=== PATIENT | female | born 1930 | race Caucasian/White ===

== ENCOUNTER 2018-10-18 04:06 | Emergency (ER) | payer MEDICARE ==
[2018-10-18 04:27] LABS: Clarity Hazy (Clear)
[2018-10-18 04:28] LABS: Bilirubin Negative (Negative); Blood, Urine Trace (Negative); Glucose, Urine (Dipstick) Negative (Negative); Leukocyte Trace (Negative); Nitrite Negative (Negative); Protein, Urine (Dipstick) 30 mg/dL (Neg-Trace); Specific Gravity, Urine 1.015 (1.005-1.030); Urobilinogen 0.2 mg/dL (0.2-1.0)
[2018-10-18 04:38] LABS: Bacteria/HPF Rare-Few HPF (None Seen); Crystals/HPF 1+ AMORPH URATES HPF (Negative); RBC/HPF 0-3 HPF (0-3); Squamous Epithelial 0-3 HPF (0-3); WBC/HPF 0-3 HPF (0-3)
[2018-10-18 04:39] LABS: Other Microscopic Description FEW CLUE CELLS
[2018-10-18 04:52] LABS: #Lymphocytes 1.2 thou/uL (1.20-3.40); #Monocytes 0.5 thou/uL (0.11-0.59); #Neutrophils 7.4 thou/uL (1.40-6.50); %Basophils 0.5 % (0.0-1.0); %Eosinophils 0.1 % (0.0-10.0); %Lymphocytes 13.3 % (21.0-51.0); %Monocytes 5.1 % (0.0-10.0); %Neutrophils 81.1 % (42.0-75.0); Hemoglobin 13.8 g/dL (12.0-16.0); Mean Corpuscular HGB CONC 31.9 g/dL (32.0-36.0); Mean Corpuscular Hemoglobin 27.9 pg (27.0-31.0); Mean Corpuscular Volume 87.2 fL (78.0-98.0); Platelet Count 369 thou/uL (130-400); RBC Distribution Width 13.1 % (11.5-14.5); Red Blood Cell (RBC) Count 4.96 mill/uL (4.20-5.40); White Blood Cell (WBC) Count 9.1 thou/uL (4.8-10.8)
[2018-10-18 05:03] LABS: ALT (SGPT) 10 U/L (8-55); AST (SGOT) 10 U/L (5-34); Albumin 4.5 g/dL (3.4-4.8); Alkaline Phosphatase 74 U/L (40-150); Anion Gap 18 mmol/L (10-20); BUN (Urea Nitrogen) 14 mg/dL (9.8-20.1); Bilirubin, Total 0.5 mg/dL (0.2-1.2); Calc. Creatinine Clearance 0 mL/min (70-130); Calcium 10.8 mg/dL (7.8-10.44); Carbon Dioxide 28 mmol/L (23-31); Chloride 86 mmol/L (98-107); Estimated GFR-MDRD 63; Globulin 2.8 g/dL (2.4-3.5); Glucose 197 mg/dL (83-110); Lipase 6 U/L (8-78); Protein, Total 7.3 g/dL (6.0-8.3); Sodium 128 mmol/L (136-145)
[2018-10-18] MEDS ORDERED: Midazolam HCl 2 mg/2 ml Vial ONE (06:17)
[2018-10-18] MEDS ORDERED: Ondansetron PF 4 MG/2 ML Vial ONE (06:31)
[2018-10-18] MEDS ORDERED: Lidocaine 2% PF 5 ML VIAL ONE (06:32)
--- NOTE | 2018-10-18 08:14 | CT ---
PRELIMINARY REPORT/[facility]/EMERGENCY AFTER HOURS PROCEDURE: EXAM: CT Abdomen and Pelvis With Contrast EXAM DATE/TIME: 10/18/2018 5:13 AM CLINICAL HISTORY: 87 years old, female; Abdominal pain; Generalized; Patient HX: Abd pain, R/O sbo, n/v TECHNIQUE: Imaging protocol: Axial computed tomography images of the abdomen and pelvis with intravenous contras t. Coronal and sagittal reformatted images were created and reviewed. Radiation optimization: All CT scans at this facility use at least one of these dose optimization hitesh hniques: automated exposure control; mA and/or kV adjustment per patient size (includes targeted exam s where dose is matched to clinical indication); or iterative reconstruction. Contrast material: ISOVUE 370; Contrast volume: 100 ml; Contrast route: LT AC; COMPARISON: No relevant prior studies available. FINDINGS: Tubes, catheters and devices: Right buttock generator for intrathecal device. Lungs: No consolidations in the lung bases. Mediastinum: Small hiatal hernia. Liver: No liver masses. Gallbladder and bile ducts: The gallbladder has been removed. The common bile duct is dilated up to 1 .4 cm. Pneumobilia. Pancreas: Marked atrophy of the pancreas. The tail may be absent. The pancreatic duct is dilated to 8 mm and contains intraductal stones. Spleen: No splenic masses. Adrenals: No adrenal nodules. Kidneys and ureters: No enhancing mass or hydronephrosis. Stomach and bowel: Dilated loops of small bowel up to 3 cm with air fluid levels. Transition point is likely in the right lower quadrant of the abdomen. Colonic diverticulosis without evidence of acute diverticulitis. Appendix: The appendix is not visualized. Intraperitoneal space: Small volume ascites in the abdomen and pelvis. Vasculature: Severe atherosclerosis of the aorta without aneurysm. Lymph nodes: No lymphadenopathy. Bladder: Normal. Reproductive: The uterus is not visualized. No adnexal masses. Bones/joints: No suspicious bone lesions. Compression fractures L1 and L3-L4. Grade 2 anterolisthesis of L4 to respect L5. Multilevel degenerative changes. Soft tissues: Diastases rectus. IMPRESSION: 1. Small bowel obstruction with transition point likely in the right lower quadrant due to adhesions. 2. Small volume ascites 3. The gallbladder has been removed. Pneumobilia and dilated common bile duct and pancreatic duct. Recommend comparison to any prior CTs not available at this time. 4. Colonic diverticulosis without evidence of acute diverticulitis. Thank you for allowing us to participate in the care of your patient. Dictated and Authenticated by: Jennie Alvarez MD 10/18/2018 6:08 AM Central Time ([place] & [place]) FINAL REPORT CT ABDOMEN AND PELVIS WITH CONTRAST: DATE: 10/18/2018. FINDINGS: Spiral CT of the abdomen and pelvis was performed with IV contrast. There are no prior studies avail able for comparison. I do see a prior cholangiogram indicating there has been a prior cholecystectom y. The major finding on this study is evidence of a small bowel obstruction. Small bowel becomes dilate d in the mid jejunal region reaching 3 cm in diameter with multiple fluid-filled loops of bowel. It transitions to a more normal size in the ileum. There is abundant fecal material in the colon but th e colon is not really dilated. Free fluid is present throughout the abdomen and pelvis. The lung bases are clear, except for chronic fibrotic changes. The liver is significant in that ther e is air in the biliary tract in the intrahepatic ducts. I have a suspicion that this may be chronic and a result of the patient's prior biliary tract surgery. Older studies would be needed to be cert ain, but I do see mild dilation and air in the common bile duct suggesting such. The spleen is somew hat small in size. The pancreas is not seen well, but no gross masses were indicated. The adrenal g lands and kidneys showed no acute findings. The aorta is densely calcified, but there is no aneurysm . The hiatal hernia was noted. CT of the pelvis was remarkable for free fluid. No other abnormalities aside from that described abo ve could be seen. There is extensive severe degenerative change in the lumbar spine with laminectomies around the lumbo sacral junction. 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 The bones are somewhat osteopenic and the superior end plates of L1 and L3 are beginning to compress. IMPRESSION: 1. Findings consistent with a mid small bowel obstruction beginning in the mid jejunal level through , but short of, the terminal ileum. 2. Free fluid in moderate amounts scattered throughout the abdomen and pelvis. 3. Air in the intrahepatic bile ducts. Thought to be more likely due to prior biliary tract surgery than current biliary tract infection. Correlate with known history and other exams if they exist el sewhere. 4. Small hiatal hernia. 5. 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 See details above. POS: HOME
[2018-10-18] MEDS ORDERED: Iopamidol 370 76% 125 ML VIAL FS ONE (09:00)
--- NOTE | 2018-10-18 19:22 | RAD ---
PORTABLE CHEST: Date: 10/18/18 Portable film at 0650 hours was compared with the film done earlier the same day. FINDINGS: The heart is normal in size. There is no vascular congestion or edema. Some linear streaking in the l eft base is most likely atelectasis. The study was done for NG tube placement. I can barely see a line at the top of the film that is prob ably the end of a NG tube that seems to end around the aortic arch level. I cannot confirm any tube p ast that point. Further studies would be needed for evaluation. IMPRESSION: Uncertain placement of NG tube, potentially very high. POS: HOME
== END 2018-10-18 07:00 | disposition short-term general hospital (02) ==
LOC: BURERS 04:06
DX: K56.609 Unspecified intestinal obstruction, unspecified as to partial versus complete obstruction (principal); E78.5 Hyperlipidemia, unspecified; I10 Essential (primary) hypertension; G62.9 Polyneuropathy, unspecified; Z79.899 Other long term (current) drug therapy
CPT/HCPCS: 36416; 71045; 74177; 80053; 81003; 81015; 83605; 83690; 85025; 96374; 96375; J2001; J2250; J2405; Q9967